=== PATIENT | female | born 1950 | race Caucasian/White ===

== ENCOUNTER 2018-09-16 21:32 | Emergency (ER) | payer MEDICARE, MEDICAID ==
[~2018-09-16] VITALS: Ht 144.8 cm; Wt 68.9 kg
[2018-09-16 21:42] VITALS: Ht 144.8 cm; Wt 68.9 kg
[2018-09-16 22:27] LABS: microscopic required? NO
[2018-09-16 22:43] LABS: CALCIUM 8.2 mg/dL (8.5-10.1); CARBON DIOXIDE 17.4 mmol/L (21-32); CREATININE SERUM 2.2 mg/dL (0.6-1.0)
[2018-09-16 22:48] LABS: UA SPECIFIC GRAVITY 1.015 (1.005-1.035); urine erythrocyte NEGATIVE (NEGATIVE)
[2018-09-16 22:48] LABS: ALBUMIN 3.9 g/dL (3.4-5.0); BILIRUBIN TOTAL 0.4 mg/dL (0.20-1.00); TOTAL PROTEIN, SERUM 7.8 g/dL (6.4-8.2)
[2018-09-16 22:52] LABS: BASOPHIL % 0.2 % (0-2); PLATELET COUNT 144 x10^3mcL (130-400); RED CELL DISTRIBUTION WIDTH 13.4 % (11.5-14.5)
[2018-09-17 02:08] VITALS: BP 168/53
== END 2018-09-17 02:08 | disposition home or self-care (01) ==
LOC: ED 21:32
PROVIDERS: Emergency Medicine
DX: I12.9 Hypertensive chronic kidney disease with stage 1 through stage 4 chronic kidney disease, or unspecified chronic kidney disease (principal); N18.9 Chronic kidney disease, unspecified; R74.8 Abnormal levels of other serum enzymes; I10 Essential (primary) hypertension; E78.00 Pure hypercholesterolemia, unspecified
CPT/HCPCS: 36415; Q0092